=== PATIENT | male | born 2000 | race Caucasian/White ===

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

== ENCOUNTER 2022-05-09 04:16 | Emergency (ER) | payer SELFPAY ==
[~2022-05-09] VITALS: Ht 175.3 cm; Wt 113.6 kg
[2022-05-09 04:16] VITALS: TEMP 98.7
[2022-05-09 05:06] LABS: BASO # 0.1 K/mm3 (0.0-0.2); BASO % 0.5 % (0.0-2.0); EOS # 0.2 K/mm3 (0.0-0.7); EOS % 0.9 % (0.0-4.0); GRAN # 13.9 K/mm3 (1.4-6.5); GRAN % 80.4 % (42.2-75.2); HEMATOCRIT 43.4 % (42.0-52.0); HEMOGLOBIN 15.3 g/dl (13.5-18.0); LYMPH # 1.8 K/mm3 (1.2-3.4); LYMPH % 10.4 % (20.0-51.0); MEAN CELL VOLUME 84 fl (80.0-100.0); MEAN CORPUSCULAR HEMOGLOBIN 30 pg (27-31); MEAN CORPUSCULAR HGB CONC 35 g/dl (33.0-37.0); MEAN PLATELET VOLUME 10.2 fl (7.4-10.4); MONO # 1.2 K/mm3 (0.1-0.6); PLATELET COUNT 250 K/mm3 (130-400); RED BLOOD COUNT 5.19 M/mm3 (4.20-5.60)
[2022-05-09 05:23] LABS: BILIRUBIN,TOTAL 1.7 mg/dL (0.2-1.2); CREATININE, serum 0.86 mg/dL (0.72-1.25); TOTAL PROTEIN 7.4 gm/dL (6.2-8.1)
[2022-05-09] MEDS ORDERED: PERCOCET 325 MG1 TA2 PO (07:15)
[2022-05-09] MEDS ORDERED: ZOFRAN ODT4 MG PO (07:15)
[2022-05-09] MEDS ORDERED: LEVAQUIN 5500 MG/TA1 PO (07:15)
[2022-05-09 07:44] VITALS: BP 134/88; PULSE 74
== END 2022-05-09 07:44 | disposition home or self-care (01) ==
LOC: COL.ER 04:16
PROVIDERS: Personal Emergency Response Attendant
DX: K81.9 Cholecystitis, unspecified (principal); F17.290 Nicotine dependence, other tobacco product, uncomplicated; Z98.890 Other specified postprocedural states; Z28.311 Partially vaccinated for COVID-19
CPT/HCPCS: C9113; J0295; J2270; J2405; J7030; Q9967

== ENCOUNTER 2022-05-17 07:40 | Day surgery (SDC) | payer SELFPAY ==
[~2022-05-17] VITALS: Ht 175.3 cm; Wt 115.1 kg
[~2022-05-17 07:40] MED LIST: LEVAQUIN 5500 MG/TA1 PO; PERCOCET 325 MG1 TA2 PO; ZOFRAN ODT4 MG PO
[2022-05-17 09:23] VITALS: BP 128/75; PULSE 85; TEMP 99.2
[2022-05-17 09:48] LABS: BASO # 0.1 K/mm3 (0.0-0.2); BASO % 0.8 % (0.0-2.0); EOS # 0.2 K/mm3 (0.0-0.7); EOS % 3.3 % (0.0-4.0); GRAN # 4.7 K/mm3 (1.4-6.5); GRAN % 66.8 % (42.2-75.2); HEMATOCRIT 43.6 % (42.0-52.0); LYMPH # 1.5 K/mm3 (1.2-3.4); LYMPH % 20.5 % (20.0-51.0); MEAN CELL VOLUME 85 fl (80.0-100.0); MEAN CORPUSCULAR HEMOGLOBIN 29 pg (27-31); MEAN CORPUSCULAR HGB CONC 34 g/dl (33.0-37.0); MEAN PLATELET VOLUME 10.2 fl (7.4-10.4); MONO # 0.5 K/mm3 (0.1-0.6); MONO % 7.6 % (1.7-9.3); PLATELET COUNT 232 K/mm3 (130-400); RED BLOOD COUNT 5.11 M/mm3 (4.20-5.60); REDCELL DISTRIBUTION WIDTH-CV 13.2 % (11.5-14.5)
[2022-05-17 09:52] LABS: ALBUMIN 3.8 gm/dL (3.5-5.0); CREATININE, serum 0.77 mg/dL (0.72-1.25); POTASSIUM 4.3 mmol/L (3.5-4.5); TOTAL PROTEIN 7.2 gm/dL (6.2-8.1)
[2022-05-17] MEDS ORDERED: NORCO 325 MG-51 TAB PO (12:17)
[2022-05-17 13:00] VITALS: BP 118/58; PULSE 77; TEMP 98.7
[2022-05-17 13:15] VITALS: BP 117/55; PULSE 75
[2022-05-17 13:30] VITALS: BP 103/44; PULSE 60
[2022-05-17 13:37] VITALS: BP 114/52; PULSE 69
[2022-05-17 13:50] VITALS: BP 117/61; PULSE 88
--- NOTE | 2022-05-17 14:51 | NUR ---
Verbal report given from [facility]; pt slightly drowsy post-procedure, x5 lap sites approximated with skin glue, CDI, and without s/s of bleeding or infection to surrounding skin; VSS; pt tolerating PO oral and fluid intake.
== END 2022-05-17 14:10 | disposition home or self-care (01) ==
LOC: SDCO 07:40
PROVIDERS: Surgery
DX: K80.10 Calculus of gallbladder with chronic cholecystitis without obstruction (principal); F17.210 Nicotine dependence, cigarettes, uncomplicated
CPT/HCPCS: J0690; J1100; J1885; J2250; J2405; J2704; J3010; J7120; Q9967

== ENCOUNTER → 2022-05-20 | Outpatient (CLI) | payer SELFPAY ==
[~2022-05-20] MED LIST changes: +NORCO 325 MG-51 TAB PO
[2022-05-20 14:59] LABS: ALBUMIN 3.6 gm/dL (3.5-5.0); BILIRUBIN,TOTAL 1.8 mg/dL (0.2-1.2); CALCIUM 9.1 mg/dL (8.4-10.2); CREATININE, serum 0.73 mg/dL (0.72-1.25); POTASSIUM 4.3 mmol/L (3.5-4.5)
== END ==
LOC: COL.LAB 13:43
PROVIDERS: Surgery
DX: K80.10 Calculus of gallbladder with chronic cholecystitis without obstruction (principal)